=== PATIENT | male | born 1930 | race Caucasian/White ===

== ENCOUNTER 2016-09-29 17:56 | Inpatient (IN) | payer MEDICARE, OTHER ==
[~2016-09-29 17:56] MED LIST: ASPIRIN EC81 MG PO; CALCIUM 600 +1 EA13 PO; FERROUS SULFAT324 MG PO; FISH OIL 1,0001 EAC9 PO; FOSINOPRIL SODI PO; GLARGINE SC; GLUCOTROL5 M1 PO; LYRICA50 MG/CAP PO; MULTI VITAMIN1 EAC2 PO; ROPINIROLE HCL PO; SYNTHROID0.2 MG/TAB PO; TYLENOL325 M2 PO; VENLAFAXINE HCL75 M3 PO
[2016-09-29] MEDS ORDERED: VENTOLIN HFA18 G2 INH (18:23)
[2016-09-29] MEDS ORDERED: LANTUS SOL100 UNIT/1 SC (18:27)
[2016-09-29] MEDS ORDERED: MUCINEX600 M1 PO (18:27)
[2016-09-29] MEDS ORDERED: OMEPRAZOLE20 M3 PO (18:28)
[2016-09-29] MEDS ORDERED: REQUIP1 M1 PO (18:28)
[2016-09-29] MEDS ORDERED: CALCIUM ACETAT667 M2 PO (18:31)
[2016-09-29] MEDS ORDERED: FLONASE ALLERG9.9 ML (18:31)
[2016-09-29] MEDS ORDERED: IBUPROFEN800 M1 PO (18:43)
[2016-09-29 19:25] LABS: BASO % 0.1 % (0-2); HCT-HEMATOCRIT 32.1 % (36.0-53.5); HGB-HEMOGLOBIN 10.1 gm/dl (13.5-17.0); LYMPH % 88.6 % (20-45); MCH (MEAN CORPUSCULAR HGB) 23.7 pg (28.0-32.0); MCHC MEAN CORPUSCULAR HGB CONC 31.5 % (32.0-36.0); MCV (MEAN CELL VOLUME) 75.2 fl (82.0-96.0); MEAN PLATELET VOLUME 10.6 cmc (9.4-12.4); MONO % 8.6 % (0-12); NEUTROPHILS % 0.7 % (40-80); PLATELET COUNT 152 tho/cmm (150-450); RED BLOOD COUNT 4.27 mil/cmm (4.40-5.70)
[2016-09-29 19:27] LABS: ANION GAP 14 mmol/L (0-20); BLOOD UREA NITROGEN 17 mg/dl (6-24); CALCIUM 8.1 mg/dl (8.5-10.5); CARBON DIOXIDE-VENOUS 23 mmol/L (22-32); CHLORIDE 104 mmol/l (96-110); CREATININE 1.15 mg/dl (0.60-1.30); EOSINOPHIL ABSOLUTE COUNT 0.1 tho/cmm (0.0-0.7); GLUCOSE 175 mg/dL (70-110); LYMPH ABSOLUTE COUNT 6.2 tho/cmm (0.8-4.5); MONOCYTE ABSOLUTE COUNT 0.6 tho/cmm (0.0-1.2); SODIUM 137 mmol/L (135-145); eGFR VALUE FOR BLACK 65 mL/Min
[2016-09-29] MEDS ORDERED: BACTRIM DS TAB1 EAC2 PO (19:41)
[2016-09-29 20:07] LABS: NEUTROPHIL-AUTOMATED 0.1 tho/cmm (1.6-8.0)
[2016-09-29 20:08] LABS: NEUTROPHIL ABSOLUTE COUNT 0.1 tho/cmm (1.6-8.0)
[2016-09-29 20:09] LABS: WBC MORPHOLOGY VARIANT LYMPHS
[2016-09-30 04:41] LABS: BASO % 0.2 % (0-2); EOS % 1.4 % (0-7); EOSINOPHIL ABSOLUTE COUNT 0.1 tho/cmm (0.0-0.7); HCT-HEMATOCRIT 30.7 % (36.0-53.5); HGB-HEMOGLOBIN 9.5 gm/dl (13.5-17.0); IMMATURE GRANULOCYTES ABSOLUTE 0.01 tho/cmm (0-0.03); IMMATURE GRANULOCYTES PERCENT 0.2 % (0-0.3); LYMPH % 88.4 % (20-45); LYMPH ABSOLUTE COUNT 4.4 tho/cmm (0.8-4.5); MCH (MEAN CORPUSCULAR HGB) 23.2 pg (28.0-32.0); MCHC MEAN CORPUSCULAR HGB CONC 30.9 % (32.0-36.0); MCV (MEAN CELL VOLUME) 75.1 fl (82.0-96.0); MEAN PLATELET VOLUME 10.1 cmc (9.4-12.4); MONOCYTE ABSOLUTE COUNT 0.4 tho/cmm (0.0-1.2); NEUTROPHILS % 1.8 % (40-80); PLATELET COUNT 150 tho/cmm (150-450); RED BLOOD COUNT 4.09 mil/cmm (4.40-5.70); RED CELL DISTRIBUTION WIDTH 14.8 % (12.4-16.4)
[2016-09-30 04:52] LABS: NEUTROPHIL ABSOLUTE COUNT 0.1 tho/cmm (1.6-8.0); NEUTROPHIL-AUTOMATED 0.1 tho/cmm (1.6-8.0)
[2016-09-30 05:21] LABS: ALB/GLOB RATIO 0.8 (0.8-2.0); ALBUMIN 2.7 g/dl (3.5-5.0); ALKALINE PHOSPHATASE 71 U/L (33-138); ANION GAP 12 mmol/L (0-20); BILIRUBIN,TOTAL 0.2 mg/dl (0.0-1.5); BLOOD UREA NITROGEN 15 mg/dl (6-24); CALCIUM 8.1 mg/dl (8.5-10.5); CARBON DIOXIDE-VENOUS 25 mmol/L (22-32); CHLORIDE 104 mmol/l (96-110); GLUCOSE 198 mg/dL (70-110); POTASSIUM 4.3 mmol/L (3.7-5.1); SODIUM 137 mmol/L (135-145)
[2016-09-30 05:24] LABS: ALT/SGPT 16 U/L (12-78); AST/SGOT 14 U/L (10-40); CREATININE 1.09 mg/dl (0.60-1.30); eGFR VALUE FOR BLACK 70 mL/Min
[2016-09-30 18:59] LABS: IRON 19 ug/dl (49-181); IRON BINDING CAPACITY 285 ug/dl (250-450)
[2016-09-30 19:05] LABS: FERRITIN 50 ng/ml (22-388)
[2016-10-01 06:24] LABS: BASO % 0.2 % (0-2); EOS % 1.1 % (0-7); HCT-HEMATOCRIT 30.8 % (36.0-53.5); HGB-HEMOGLOBIN 9.5 gm/dl (13.5-17.0); IMMATURE GRANULOCYTES ABSOLUTE 0.02 tho/cmm (0-0.03); IMMATURE GRANULOCYTES PERCENT 0.2 % (0-0.3); LYMPH % 75.9 % (20-45); MCH (MEAN CORPUSCULAR HGB) 23.2 pg (28.0-32.0); MCHC MEAN CORPUSCULAR HGB CONC 30.8 % (32.0-36.0); MCV (MEAN CELL VOLUME) 75.1 fl (82.0-96.0); MEAN PLATELET VOLUME 10.5 cmc (9.4-12.4); MONO % 6.5 % (0-12); NEUTROPHIL ABSOLUTE COUNT 1.6 tho/cmm (1.6-8.0); NEUTROPHIL-AUTOMATED 1.6 tho/cmm (1.6-8.0); NEUTROPHILS % 16.1 % (40-80); PLATELET COUNT 170 tho/cmm (150-450); RED CELL DISTRIBUTION WIDTH 14.8 % (12.4-16.4)
[2016-10-01 06:35] LABS: EOSINOPHIL ABSOLUTE COUNT 0.1 tho/cmm (0.0-0.7); LYMPH ABSOLUTE COUNT 7.6 tho/cmm (0.8-4.5); MONOCYTE ABSOLUTE COUNT 0.7 tho/cmm (0.0-1.2)
[2016-10-01 12:00] LABS: WBC MORPHOLOGY VARIANT LYMPHS
[2016-10-01] MEDS ORDERED: BACTRIM DS TAB1 EAC2 PO (16:04)
[2017-01-21] MEDS ORDERED: TYLENOL PM EX-1 EAC4 PO (12:28)
[2017-01-21] MEDS ORDERED: FOSINOPRIL SODI20 M2 PO (12:31)
== END 2016-10-01 17:15 | DRG 603 ==
LOC: EDMED 17:56 → EMR2 22:13 → 5WF 22:34
PROVIDERS: Emergency Medicine; Internal Medicine; Internal Medicine Medical Oncology; ADMIT Hospitalist
DX: L03.114 Cellulitis of left upper limb (principal); E11.40 Type 2 diabetes mellitus with diabetic neuropathy, unspecified; C91.10 Chronic lymphocytic leukemia of B-cell type not having achieved remission; D70.9 Neutropenia, unspecified; D64.9 Anemia, unspecified; I10 Essential (primary) hypertension; F32.9 Major depressive disorder, single episode, unspecified; C76.0 Malignant neoplasm of head, face and neck; E03.9 Hypothyroidism, unspecified; E78.5 Hyperlipidemia, unspecified; G25.81 Restless legs syndrome; M48.00 Spinal stenosis, site unspecified; Z87.891 Personal history of nicotine dependence
CPT/HCPCS: J0690; J1447; J1815; J1956; J3370; J7030